=== PATIENT | female | born 1975 | race Caucasian/White ===

== ENCOUNTER 2022-11-30 13:01 | Emergency (ER) | payer MEDICARE, OTHER ==
[~2022-11-30] VITALS: Ht 167.6 cm; Wt 65.8 kg
--- OUTSIDE RECORDS SUMMARY | 2022-11-30 15:02 | XMS ---
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 [place] VISIT COUNT (12 MO.) Jessenia Heard TOTAL 12 NOTE: Visits indicate total known visits. ED/UCC VISIT TRACKING (12 MO.) 11/30/2022 13:02 [facility] TYPE: Emergency COMPLAINT: - POST SURGICAL PROBLEM 08/20/2022 17:39 [facility] TYPE: Emergency DIAGNOSES: - Dehydration - Encounter for screening, unspecified - Followup Medical Problem - Medical Follow-Up, Dehydration 08/09/2022 12:40 [facility] TYPE: Emergency DIAGNOSES: - Generalized abdominal pain - Abdominal Pain - Emesis - stomach pain 07/07/2022 10:00 [facility] TYPE: Emergency DIAGNOSES: - Gastrointestinal hemorrhage, unspecified - Dizziness - Emesis - Vomiting blood 05/23/2022 08:37 [facility] TYPE: Emergency DIAGNOSES: - Dehydration - Nausea with vomiting, unspecified - Emesis - vomitting 05/15/2022 12:06 [facility] TYPE: Emergency DIAGNOSES: - Dehydration - Dehydration - Noninfective gastroenteritis and colitis, unspecified - Emesis - Medical Follow Up 04/14/2022 10:06 [facility] TYPE: Emergency DIAGNOSES: - Colostomy infection - Abdominal Pain - Follow up Medical 02/11/2022 16:55 [facility] TYPE: Emergency DIAGNOSES: - Disorder of kidney and ureter, unspecified - Hyperkalemia - Tachycardia, unspecified - Unspecified abdominal pain - Abnormal Lab - Abnormal Labs; Low Potassium - Followup Medical Problem 01/19/2022 11:24 [facility] TYPE: Emergency DIAGNOSES: - Trice syndrome - Abdominal Pain 01/15/2022 14:04 [facility] TYPE: Emergency DIAGNOSES: - Contusion of scalp, initial encounter - Pain in thoracic spine - Strain of muscle and tendon of back wall of thorax, initial encounter - fall 12/21/2021 17:20 [facility] TYPE: Emergency DIAGNOSES: - Dizziness and giddiness - Hypokalemia - Other chest pain - Abnormal Lab - Chest Pain - Chest Pain, Dizziness - Dizziness 12/17/2021 08:43 [facility] TYPE: Emergency DIAGNOSES: - Acute cystitis without hematuria - Hypokalemia - Abnormal Lab - Low Potassium INPATIENT VISIT TRACKING (12 MO.) 11/15/2022 06:40 [facility] TYPE: Surgery DIAGNOSES: - Ileostomy status 08/29/2022 08:59 [facility] TYPE: Surgery DIAGNOSES: - Acute gastrojejunal ulcer without hemorrhage or perforation - Bariatric surgery status - Encounter for other preprocedural examination - Gastrojejunal ulcer, unspecified as acute or chronic, without hemorrhage or perforation - Unspecified severe protein-calorie malnutrition 07/15/2022 14:53 [facility] TYPE: Surgery DIAGNOSES: - Acute gastrojejunal ulcer without hemorrhage or perforation - Unspecified severe protein-calorie malnutrition - dehydration, marginal ulcer 01/19/2022 11:24 [facility] TYPE: Surgery DIAGNOSES: - Acute infarction of large intestine, extent unspecified - Encounter for fitting and adjustment of other specified devices - [place] syndrome - Primary adrenocortical insufficiency [email or web address]
[2022-11-30 15:20] VITALS: BP 113/59
== END 2022-11-30 15:10 | disposition home or self-care (01) ==
LOC: ED 13:01
DX: Z48.815 Encounter for surgical aftercare following surgery on the digestive system (principal); Z48.02 Encounter for removal of sutures
CPT/HCPCS: 99282